=== PATIENT | male | born 1980 | race African-American/Black ===

== ENCOUNTER 2022-06-01 21:08 | Emergency (ER) | payer OTHER ==
[2022-06-01] MEDS ORDERED: Lidocaine 1% PF 5 ML VIAL ONE (22:24)
[2022-06-01] MEDS ORDERED: Boostrix 0.5 ML (Tdap) VIAL (>/=7 yrs of age) ONE (22:31)
== END 2022-06-01 22:37 | disposition home or self-care (01) ==
LOC: CSHERS 21:08
DX: S91.012A Laceration without foreign body, left ankle, initial encounter (principal); Z23 Encounter for immunization; J45.909 Unspecified asthma, uncomplicated; Z86.711 Personal history of pulmonary embolism; F17.210 Nicotine dependence, cigarettes, uncomplicated; Z79.01 Long term (current) use of anticoagulants; W25.XXXA Contact with sharp glass, initial encounter
CPT/HCPCS: 12001; 90471; 90715